=== PATIENT | female | born 1975 | race Caucasian/White ===

== ENCOUNTER 2018-10-19 13:16 | Emergency (ER) | payer MEDICAID, SELFPAY ==
[2018-10-19] VITALS (17 sets, daily range): BP systolic 110–139; BP diastolic 70–99; PULSE 52–88; RESP 16; TEMP 35.9; O2SAT 97–100
--- NOTE | 2018-10-19 13:39 | ED.GENADUL_ITS ---
Discharge Plan Disposition Patient Disposition: HOME Condition: Fair Discharge Details Chief Complaint: FlankPain Clinical Impression: Nephrolithiasis, UTI (urinary tract infection) Primary Care Provider: None,None ED Provider: Maggie Lombardo Home Meds and New Rx's Prescriptions: New ondansetron 4 mg tablet,disintegrating 4 mg PO QID PRN (Reason: nausea and vomiting) Qty: 10 RF: 0 oxycodone 5 mg tablet 5 mg PO Q6H PRN (Reason: pain) Qty: 5 RF: 0 Discharge Instructions Instructions: Kidney Stones (ED), Urinary Tract Infection in Women (ED) Additional Instructions: Encourage hydration. May use Tylenol and ibuprofen as needed for discomfort. Augment this with the oxycodone as prescribed if this is insufficient in helping with her pain. Please take this only as prescribed and keep this in a safe place away from children. Zofran as prescribed to help with nausea and vomiting. You will need procedure completed tomorrow by Dr. Cerna. Please contact urology clinic tomorrow, number listed below. Call at 8:00 in the morning. Do not eat anything after midnight If you develop fevers, increased pain, change in urinary habits or other new/worsening symptoms please seek care urgently once again Referrals: Hilario Cerna MD [ [facility] STAFF PHYSICIAN] - Discharge Data Discharge Date/Time-TO BE ENTERED AT DEPARTURE: 10/19/18 17:55 Medical Decision Making <Amaury Monge NP - Last Filed: 10/20/18 09:43> Patient presenting to the emergency department for chief complaint of right- sided abdominal pain/flank/back pain. Patient states that this had sudden onset around 8 AM this morning. Patient states that just this last fall she was diagnosed with a cyst on her kidneys that she was supposed to follow-up with [facility] but never followed up with them. She does state associated nausea and subjective chills and fever. Physical exam shows very uncomfortable appearing patient with right-sided abdominal tenderness both upper and lower quadrants, right CVA tenderness. Normal active bowel sounds and abdomen is otherwise soft. Plan to check labs, urinalysis, and CT image for renal colic given patient's history. Also of consideration given right upper quadrant nausea is possibly pathology concerning the gallbladder but will review labs and consider possible ultrasound imaging if CT is negative. Pending results patient given morphine and Zofran. Pending results patient continued to have discomfort so given 15 of ketorolac. staff electronic warfare officer noted bradycardia on the monitor so EKG was performed and reviewed with Dr. Otto. There is sinus bradycardia, rate of 45, no ischemic changes noted, otherwise nondiagnostic EKG. Review of labs show a significant leukocytosis with WBCs being 20,000, low carbon dioxide and slightly increased anion gap, mildly elevated calcium and otherwise nondiagnostic CMP. Urine is negative and urinalysis shows some blood and elevated specific gravity and signs of possible infection with leukocyte esterase being elevated and white cells greater than 50. Pending CT results patient given Rocephin. <PHANI Jara - Last Filed: 10/19/18 22:30> Care transitioned to myself from Lobo Monge NP. I reviewed CT, contacted Dr. Cerna who is concerned for the hemorrhagic mass being infected. He advised that I contact [facility] or [facility] for their opinion if this is in need of drainage. Have pushed images to [facility] as the patient has been treated for this there and they will have comparison imaging. Awaiting read from radiologist. Discussed labs with the patient. Receiving Rocephin and second liter of fluid. FINDINGS: Lungs: 2 mm pulmonary nodule left lower lobe. Mediastinum: Small hiatal hernia. ABDOMEN: Liver: Normal. No mass. Gallbladder and bile ducts: Stones at the gallbladder. Pancreas: Normal. No ductal dilation. Spleen: Normal. No splenomegaly. Adrenals: Normal. No mass. Kidneys and ureters: Scarring upper pole left kidney. 3.1 cm left renal hypodensity that cannot be further characterized on the current examination. No left hydronephrosis. 5 mm stone proximal right ureter. Moderate right hydronephrosis. Scarring right kidney. 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 No acute hemorrhage. Stomach and bowel: Normal. No obstruction. No mucosal thickening. Appendix: No evidence of appendicitis. PELVIS: Bladder: Unremarkable as visualized. Reproductive: 3 cm low attenuation lesion at the right adnexa, possibly an ovarian cyst. ABDOMEN and PELVIS: Intraperitoneal space: Normal. No free air. No significant fluid collection. Bones/joints: No acute fracture. No dislocation. Soft tissues: Unremarkable. Vasculature: Normal. No abdominal aortic aneurysm. Lymph nodes: Normal. No enlarged lymph nodes. IMPRESSION: 1. 5 mm stone proximal right ureter. Moderate right hydronephrosis. 2. 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 No acute hemorrhage. 3. 2 mm pulmonary nodule left lower lobe. 4. Cholelithiasis. 5. 3 cm low attenuation lesion at the right adnexa, possibly an ovarian cyst. Patient admitted to [facility] and spoke with Dr. Madonna Ha who has taken care of this patient historically. He advised that the mass on the kidney is not AML and that this is not able to become infected. This correlates with the reading of the radiologist. He advised treating as if infected stone would be treated typically with Dr. Cerna report he would be able to take care of in our institution. Consulted again with Dr. Cerna. As the patient is afebrile, has stable vital signs and is well managed with medication, he feels she can be discharged home. He advised the Rocephin will work well for the next [address] a stent tomorrow. He is asked that the patient call the office tomorrow at 8:00. She will remain n.p.o. after midnight. Patient given strict return precautions. Patient will be discharged home with antiemetic and pain medication. We discussed risks of these medications and safe usage. All of her questions and concerns were addressed and she is in agreement this plan. HPI <Amaury Monge NP - Last Filed: 10/20/18 09:43> General Mode of arrival: ambulatory . Date/Time Provider Initiated Documentation: 10/19/18 13:26 . Limitations to Documentation: no limitations . Information obtained by: patient and RN notes reviewed . History of Present Illness 43 year old F presents to the emergency department with the chief complaint of Right flank pain, described as severe, with intensity rated at 10. Quality is described as sharp, and is localized to the back. Patient abdomen. Patient started experiencing this hour(s) (5) and it has been constant. No relieving factors improve symptom(s), No exacerbating factors reported . Patient did receive the following treatments prior to arrival, none Related Data Home Medications Medication Instructions Recorded Confirmed ondansetron 4 mg PO QID PRN #10 tab 10/19/18 oxycodone 5 mg PO Q6H PRN #5 tab 10/19/18 Previous Rx's Medication Instructions Recorded ondansetron 4 mg PO QID PRN #10 tab 10/19/18 oxycodone 5 mg PO Q6H PRN #5 tab 10/19/18 Allergies Allergy/AdvReac Type Severity Reaction Status Date / Time No Known Allergies Allergy Unverified 10/19/18 14:18 General Stated Complaint: FlankPain ANASTACIA: 3 Review of Systems <Amaury Monge NP - Last Filed: 10/20/18 09:43> Constitutional Denies chills and Denies fever(s) Cardiovascular Denies chest pain and Denies dyspnea Respiratory Denies cough and Denies dyspnea Gastrointestinal Reports as per HPI, Reports abdominal pain, Denies melena, Denies change in bowel habits, Denies constipation, Denies diarrhea, Reports nausea and Reports vomiting Genitourinary Denies hematuria, Reports flank pain, Denies urinary incontinence, Denies urinary hesitancy and Denies urinary urgency Integumentary/Breasts Denies rash PFSH <Amaury Monge NP - Last Filed: 10/20/18 09:43> Social History Alcohol Intake: never Drug use: Occasionally Substance use type: marijuana Exam <Amaury Monge NP - Last Filed: 10/20/18 09:43> Const General: cooperative Orientation: alert, awake and oriented x3 Resp Effort & Inspection: normal respiratory effort and able to speak in complete sentences Auscultation: clear to auscultation bilaterally Cardio Rate: regular rate Rhythm: regular rhythm Heart Sounds: S1 normal and S2 normal GI Palpation: soft, no hepatosplenomegaly, not firm, no guarding, no masses, no pulsatile masses, not rigid, no splenomegaly and tender in the RLQ and in the RUQ; not periumbilically and with no rebound tenderness Auscultation: normal bowel sounds Back/Spine/Pelvis Back: CVA tenderness (right) Neuro General: alert, awake, oriented x3, gait normal and moves all extremities Course <Amaury Monge NP - Last Filed: 10/20/18 09:43> Vital Signs Temperature 35.9 C L 10/19/18 13:26 Pulse 52 L 10/19/18 13:26 Respiratory Rate 16 10/19/18 13:26 Blood Pressure 113/71 10/19/18 13:26 Pulse Oximetry 100 10/19/18 13:26 Temperature 35.9 C L 10/19/18 13:26 Temperature Source Temporal Artery Scan 10/19/18 13:26 Pulse 52 L 10/19/18 13:26 Respiratory Rate 16 10/19/18 13:26 Blood Pressure 113/71 10/19/18 13:26 Blood Pressure Position Sitting 10/19/18 13:26 Pulse Oximetry 100 10/19/18 13:26 Oxygen Delivery Method Room Air 10/19/18 13:26 Oxygen Flow Rate 0 10/19/18 13:26 Pain Level 8 10/19/18 13:26 Sign Out <Amaury Monge NP - Last Filed: 10/20/18 09:43> Sign Out Data: Sign Out Comment: Patient pending CT imaging results and concern for possible infected stone or hemorrhagic renal mass/cyst, patient signed out to PHANI Payan for any further treatments or disposition as needed. Last updated by Amaury Monge NP at 10/19/18 16:01
[2018-10-19 13:55] LABS: Abs Immature Grans 0.09 k/cumm (0.0-0.09); Absolute Lymphocyte Count 1.36 k/cumm (1.2-3.4); Absolute Monocyte Count 0.85 k/cumm (0.11-0.7); Basophils % 0.1; Eosinophils % 0.4; HCT 41.5 % (36.0-46.0); HGB 14.3 g/dL (12.0-15.5); Immature Grans % 0.4; Lymphocytes % 6.7; Mean Corp. HGB Concentration 34.5 g/dL (32.0-36.0); Mean Corpuscular Hemoglobin 30.4 pg (27.0-33.0); Mean Corpuscular Volume 88.1 fL (80-95); Monocytes % 4.2; Neutrophils % 88.2; Platelet Count 213 x1000/uL (130-400); RBC 4.71 m/cumm (4.00-5.20); RBC Distribution Width 13.1 % (11.7-14.6); White Blood Cell Count 20.25 k/cumm (4.4-10.8)
[2018-10-19 13:58] LABS: Absolute Basophil Count 0.02 k/cumm (0.0-0.2); Absolute Eosinophil Count 0.08 k/cumm (0.0-0.7); Absolute Neutrophil Count 17.86 k/cumm (1.2-6.7)
[2018-10-19 14:13] LABS: ALT 23 U/L (12-78); AST 17 U/L (15-37); Albumin 4.2 g/dL (3.4-5.0); Alkaline Phosphatase 75 U/L (46-116); Anion Gap 13.1 mmol/L (3-11); BUN 17 mg/dL (7-18); Bilirubin, Total 0.6 mg/dL (0.2-1.0); CO2 19.9 mmol/L (21.0-32.0); CREATININE 0.86 mg/dL (0.55-1.02); Calcium 10.6 mg/dL (8.5-10.1); Chloride 104 mmol/L (98-107); Glucose 146 mg/dL (70-100); Potassium 4.1 mmol/L (3.5-5.1); Sodium 137 mmol/L (136-145); Total Protein 8.3 g/dL (6.4-8.2)
[2018-10-19] MEDS: MORPHine 10 MG/ML VIAL 2 MG IVP (14:15)
[2018-10-19] MEDS: Ondansetron 4 MG/2 ML VIAL IVP (14:15)
[2018-10-19 14:53] LABS: Bilirubin Small (Negative); Blood Trace-intact (Negative); Clarity Clear; Glucose Negative (Negative); Ketones >=160 mg/dL (Negative); Leukocyte Esterase Small (Negative); Nitrite Negative (Negative); Specific Gravity >= 1.030 (1.005-1.025)
--- NOTE | 2018-10-19 14:58 | DI.CT_ITS ---
SYMPTOMS/DIAGNOSIS: RIGHT FLANK PAIN RENAL COLIC CT: The study was conducted according to the usual protocol without contrast enhancement. Note is made of a 2 mm. nodule in the left lower lobe. Also there is a small hiatus hernia. The lung bases are unremarkable. The visualized portions of the liver appear intact. Cholelithiasis is demonstrated. The pancreas and spleen are normal. The adrenals are normal. Evaluation of the kidneys reveals scarring in the upper pole of the left kidney. There is a 3.1 cm. left renal hypodensity that cannot be fully characterized on the current examination but could represent a large angiomyolipoma. There is no evidence of left hydronephrosis. A 5 mm. stone is noted in the proximal right ureter and there is moderate right hydronephrosis and scarring in the right kidney. Note is made of a 7.5 cm. angiomyolipoma in the right kidney. There is no evidence of acute hemorrhage. There is no evidence of bowel obstruction. There is nothing to suggest an acute appendix. The bladder is unremarkable. A 3 cm. low attenuation lesion is noted in the right adnexa, likely representing an ovarian cyst. There is no evidence of free air or free fluid in the intraperitoneal space. No acute bony abnormality is seen. The soft tissues are unremarkable. There is no evidence of an aortic aneurysm. There is no evidence of lymphadenopathy. SUMMARY: A 5 mm. calculus is noted in the proximal right ureter resulting in moderate right hydronephrosis. There is a 7.5 cm. angiomyolipoma in the right kidney. There is no acute hemorrhage. Note is also made of a 2 mm. pulmonary nodule in the left lower lobe. There is cholelithiasis. There is a 3 cm. low attenuation region in the right adnexa, likely representing an ovarian cyst.
[2018-10-19] MEDS: Normal Saline 1,000 ML 1000 ML IV (15:00)
[2018-10-19] MEDS: Ketorolac 15 MG/ML VIAL IVP (15:12)
[2018-10-19 15:14] LABS: Lactate-non-spesis 1.5 mmol/l (0.6-1.4)
[2018-10-19 15:15] LABS: Bacteria Many HPF (Negative); C & S Indicated? Yes; Casts Negative LPF (Negative); Crystals Negative HPF (Negative); Epithelial Cells Few HPF (Negative); Mucus Negative (Negative); RBC 20-50 (0-2); WBC >50 HPF (0-5)
[2018-10-19] MEDS: cefTRIAXone 1 GM/50 ML BAG IVPB (16:10)
--- NOTE | 2018-10-19 17:02 | DI.VRAD_ITS ---
EXAM: CT Abdomen and Pelvis Without Contrast EXAM DATE/TIME: 10/19/2018 3:38 PM CLINICAL HISTORY: 43 years old, female; Abdominal pain; Patient HX: Right flank pain since this morning. TECHNIQUE: Imaging protocol: Axial computed tomography images of the abdomen and pelvis without contrast. Coronal and sagittal reformatted images were created and reviewed. Radiation optimization: All CT scans at this facility use at least one of these dose optimization techniques: automated exposure control; mA and/or kV adjustment per patient size (includes targeted exams where dose is matched to clinical indication); or iterative reconstruction. COMPARISON: No relevant prior studies available. FINDINGS: Lungs: 2 mm pulmonary nodule left lower lobe. Mediastinum: Small hiatal hernia. ABDOMEN: Liver: Normal. No mass. Gallbladder and bile ducts: Stones at the gallbladder. Pancreas: Normal. No ductal dilation. Spleen: Normal. No splenomegaly. Adrenals: Normal. No mass. Kidneys and ureters: Scarring upper pole left kidney. 3.1 cm left renal hypodensity that cannot be further characterized on the current examination. No left hydronephrosis. 5 mm stone proximal right ureter. Moderate right hydronephrosis. Scarring right kidney. 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 No acute hemorrhage. Stomach and bowel: Normal. No obstruction. No mucosal thickening. Appendix: No evidence of appendicitis. PELVIS: Bladder: Unremarkable as visualized. Reproductive: 3 cm low attenuation lesion at the right adnexa, possibly an ovarian cyst. ABDOMEN and PELVIS: Intraperitoneal space: Normal. No free air. No significant fluid collection. Bones/joints: No acute fracture. No dislocation. Soft tissues: Unremarkable. Vasculature: Normal. No abdominal aortic aneurysm. Lymph nodes: Normal. No enlarged lymph nodes. IMPRESSION: 1. 5 mm stone proximal right ureter. Moderate right hydronephrosis. 2. 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 No acute hemorrhage. 3. 2 mm pulmonary nodule left lower lobe. 4. Cholelithiasis. 5. 3 cm low attenuation lesion at the right adnexa, possibly an ovarian cyst. Dictated and Authenticated by: Parth Parks MD. Ordering:GRIFFIN Rebolledo MD
== END 2018-10-19 17:55 | disposition home or self-care (01) ==
PROVIDERS: Nurse Practitioner Family; Emergency Provider Physician Assistant
DX: N13.1 Hydronephrosis with ureteral stricture, not elsewhere classified (principal); N39.0 Urinary tract infection, site not specified
CPT/HCPCS: 36415; 80053; 81025; 93005; 96361; 96365; 96375; 99285; 74176; 81003; 81015; 83605; 85025; 87086; 93010; J0696; J1885; J2270; J2405